=== PATIENT | male | born 1945 | race Caucasian/White ===

== ENCOUNTER → 2017-10-07 | Outpatient (CLI) | payer MEDICARE ==
--- NOTE | 2017-10-07 20:23 | RADIOLOGY REPORT PS360 ---
PROCEDURE: 2-D M-mode and color Doppler study INDICATIONS FOR THE TEST: Chest pain COPD Heart Murmur Tobacco SmokingEX Palpitations Fatigue Syncope Edema Hypertension Diabetes MellitusX Rheumatic Fever SOBXDOEXObesityXHyperlipidemiaX Family History HD Additional History ICD,CAD,CABG,STENTS DEFINITY GIVEN PATIENT INFORMATION HEIGHT: 69 WEIGHT:198 GENDER: Male B/P:110/70 2-D/M-MODE INTERPRETATION: 2-D MEASUREMENTS OBSERVED VALUES IN CMS Right Ventricular Dimension (RVDd) 2.5 Interventricular Septum (Thickness)(IVsd) 1.2 Left Ventricular Internal Dimensions(LVIDd) 5.7 Left Ventricular Posterior Wall (Thickness)(LVPWd) 1.0 Aortic Root 3.8 Aortic Cusp Separation 1.2 Left Atrial Dimensions (LAD) 3.4 2D 1. Left atrium is mildly enlarged, left ventricle is mildly dilated, there is severely reduced left ventricular cyst function, visually estimated ejection fraction of 20-25%, there is marked hypo to akinesis involving mid to distal septum, anterior, anteroapical, apical and inferior wall. 2. The right atrium and right ventricle are mildly enlarged with normal contractility. 3. The aortic valve is thickened and calcified with mild restriction the leaflet mobility. 4. The mitral and tricuspid valve leaflets are minimally thickened. 5. The pulmonic valve is poorly visualized 6. No significant pericardial effusion noted. DOPPLER INTERROGATION: 1. The aortic out flow velocity recorded study is 2.2 m/s, resulting in a mean gradient across valve of 12 mmHg, represents mild aortic stenosis, there is no aortic insufficiency. 2. There is mild mitral and tricuspid regurgitation noted, tricuspid and jet velocity insufficient for calculation of the right ventricular systolic pressure. CONCLUSION: 1. Technically difficult study because of the patient's factor and poor acoustic windows 2. Biatrial enlargement, dilated left ventricle, severely reduced left ventricular systolic function, visually estimated ejection fraction of 20-25% with multiple segmental wall motion abnormality as described above. 3. Thickened and calcified aortic valve without Doppler evidence of mild aortic stenosis, there is no aortic insufficiency. 4. Mild mitral and tricuspid regurgitation. 5. No significant pericardial effusion noted.
--- NOTE | 2017-10-10 12:49 | RADIOLOGY REPORT PS360 ---
History and Indications: Coronary artery disease, bypass surgery, diabetes, hyperlipidemia, family history shortness of breath Procedure: Patient received a 0.4 mg of Lexiscan, resting heart rate was 58 bpm, resting blood pressure 129/72, with Lexiscan maximum heart rate achieved was 78 bpm, which is less than 85% of the maximum predicted heart rate and a blood pressure was 120/67. With Lexiscan patient denied complained of chest pain. Electrocardiogram: Resting electrocardiogram showed sinus rhythm, inferior and anterolateral ST-T consider subendocardial area. With Lexiscan there is less than 1.[address] segment depression noted from the baseline EKG. The EKG portion of the Lexiscan Myoview is nondiagnostic. Cardiac stress and resting SPECT images: Cardiac stress and rest SPECT images were obtained using technetium 99 Myoview 10.9 mCi at rest, and 30.5 mCi at stress, gated SPECT further analysis of segmental wall motion and calculation of ejection fraction also done. Cardiac stress and rest images show a large area of severely reduced tracer activity involving the anterior, anteroapical, anteroseptal, inferolateral, posterolateral and inferior wall in a fixed pattern consistent with extensive area of prior myocardial scarring. There is no significant tomasz-infarct ischemia seen. Computer derived ejection fraction is 17% with marked hypo to akinesis involving the anterior, anteroapical, inferolateral and posterolateral wall. The left ventricle is dilated both stress and rest, right ventricle is mildly enlarged with normal contractility. Conclusion: 1. The EKG portion of the Lexiscan Myoview is nondiagnostic. 2. Scintigraphic evidence of extensive prior myocardial scarring as described above without significant tomasz-infarct ischemia, computer derived ejection fraction is 17% with multiple segmental wall motion abnormality as described above, left ventricle is dilated both stress and rest, right ventricle is mildly enlarged with normal contractility. 3. Abnormal Lexiscan Myoview study.
== END ==
LOC: RAD 06:53
DX: I25.10 Atherosclerotic heart disease of native coronary artery without angina pectoris (principal); R06.00 Dyspnea, unspecified; E11.9 Type 2 diabetes mellitus without complications; I10 Essential (primary) hypertension
CPT/HCPCS: A9502; J2785